=== PATIENT | male | born 1960 | race Caucasian/White ===

== ENCOUNTER 2017-03-16 19:27 | Emergency (ER) | payer BC ==
[2017-03-16 20:14] VITALS: BP 138/92
[2017-03-16] MEDS ORDERED: Amoxicillin/Clavulanate TAB* 875 MG PO ONE (21:21)
--- NOTE | 2017-03-16 21:21 | UC ---
General HPI - HPI Summary HPI Summary: complaint of red swollen area on his right hand was scratched and bit by a cat approx1-2 weeks ago yesterday the red increased and npow he has a red sraek that ran uop his arm denies fever and chills using a cream and benadryl without relief - History of Current Complaint Chief Complaint: UCGeneralIllness Stated Complaint: TICK BITE Time Seen by Provider: 03/16/17 21:13 Hx Obtained From: Patient - Allergy/Home Medications Allergies/Adverse Reactions: Allergies Allergy/AdvReac Type Severity Reaction Status Date / Time No Known Allergies Allergy Verified 03/16/17 20:04 PMH/Surg Hx/FS Hx/Imm Hx Previously Healthy: Yes Endocrine History Of: Denies: Diabetes Cardiovascular History Of: Denies: Hypertension, Pacemaker/ICD, Congestive Heart Failure GI/ History Of: Denies: Renal Disease - Surgical History Surgical History: Yes Surgery Procedure, Year, and Place: TONSILECTOMY - Family History Known Family History: Negative: Cardiac Disease, Hypertension, Diabetes - Social History Occupation: Employed Full-time Lives: With Family Alcohol Use: Daily Alcohol Amount: states 2-3 drinks/ day Substance Use Type: None Smoking Status (MU): Light Every Day Tobacco Smoker Review of Systems Constitutional: Negative Skin: Rash Eyes: Negative ENT: Negative Respiratory: Negative Cardiovascular: Negative Gastrointestinal: Negative Genitourinary: Negative Motor: Negative Neurovascular: Negative Musculoskeletal: Negative Neurological: Negative Psychological: Negative All Other Systems Reviewed And Are Negative: Yes Physical Exam Triage Information Reviewed: Yes Appearance: No Pain Distress, Well-Nourished Vital Signs: Initial Vital Signs Temp 99.1 F 03/16/17 20:05 Pulse 76 03/16/17 20:05 Resp 18 03/16/17 20:05 BP 138/92 03/16/17 20:05 Pulse Ox 100 03/16/17 20:05 Vital Signs Reviewed: Yes Eyes: Positive: Conjunctiva Clear ENT: Positive: Pharynx normal, TMs normal Neck: Positive: No Lymphadenopathy Respiratory: Positive: Lungs clear, Normal breath sounds, No respiratory distress Cardiovascular: Positive: RRR, No Murmur, Pulses Normal Abdomen Description: Positive: Nontender, Soft Bowel Sounds: Positive: Present Musculoskeletal: Positive: Other: - RUE- area of erythema on entire base of thumb 3x4cm, erythematous streak exted from thunb to top of forearm Neurological Exam: Normal Psychological Exam: Normal Skin: Positive: Other - see musculoskeletal Course/Dx - Differential Dx - Multi-Symptom Provider Diagnoses: cellulitis- cat bite Discharge - Discharge Plan Condition: Stable Disposition: HOME Patient Education Materials: Animal Bite (ED), Cellulitis (ED) Additional Instructions: Please take antibiotic as directed Increase fluids and rest Take acetaminophen or ibuprofen for fever or pain If the red area increases , you develop a fever or your pain level increases please return to the clinic Please review your discharge instructions. If your symptoms do not improve please call your primary care provider or return to urgent care.
== END 2017-03-16 21:35 | disposition home or self-care (01) ==
LOC: UCEAST 19:27
DX: L03.113 Cellulitis of right upper limb (principal); F17.210 Nicotine dependence, cigarettes, uncomplicated
CPT/HCPCS: 99212; A9270-GY; G0463